=== PATIENT | female | born 1975 | race American Indian/Alaskan Native ===

== ENCOUNTER 2018-07-08 01:17 | Emergency (ER) | payer MEDICAID ==
[2018-07-08 01:22] VITALS: BP 127/86
[2018-07-08] MEDS ORDERED: TORADOL IM ONE (03:21)
--- NOTE | 2018-07-08 03:38 | Emergency Department Report ---
ED Lower Extremity HPI - General Chief Complaint: Extremity Injury, Lower Stated Complaint: KNEE PAIN Time Seen by Provider: 07/08/18 03:18 Source: patient Mode of arrival: Stretcher Limitations: No Limitations - History of Present Illness Initial Comments: Patient is a 43-year-old [place] female states she was kicking a door and felt pop in her left knee now only able to partially bear weight complains of left lateral 5/10 pain subjective swelling patient did ambulate into ED place incident happened 2 hours ago MD Complaint: knee injury Onset/Timin -: hour(s) Injury: Knee: Left Type of Injury: blunt Place: home Severity: moderate Severity scale (0 -10): 4 Improves With: nothing Worsens With: nothing Context: other (kick door ) Associated Symptoms: snap/pop sensation, swelling, able to partially bear weight. denies: numbness, tingling - Related Data Previous Rx's Medication Instructions Recorded Last Taken Type Cyclobenzaprine [Flexeril] 10 mg PO BID PRN #20 tablet 07/08/18 Unknown Rx Menthol/Camphor [[place] 1 applicatio TP QID PRN #1 07/08/18 Unknown Rx Ointment] oint...g. Naproxen 500 mg PO BID PRN #30 tablet 07/08/18 Unknown Rx Allergies Allergy/AdvReac Type Severity Reaction Status Date / Time codeine Allergy Itching Verified 07/25/13 10:16 ED Review of Systems ROS: Stated complaint: KNEE PAIN Other details as noted in HPI Constitutional: denies: chills, fever Eyes: denies: eye pain, eye discharge, vision change ENT: denies: ear pain, throat pain Respiratory: denies: cough, shortness of breath, wheezing Cardiovascular: denies: chest pain, palpitations Endocrine: no symptoms reported Gastrointestinal: denies: abdominal pain, nausea, diarrhea Genitourinary: denies: urgency, dysuria, discharge Musculoskeletal: other (knee pain ) Skin: denies: rash, lesions Neurological: denies: headache, weakness, paresthesias Psychiatric: denies: anxiety, depression Hematological/Lymphatic: denies: easy bleeding, easy bruising ED Past Medical Hx - Past Medical History Additional medical history: chronic back pain - Surgical History Past Surgical History?: No - Social History Smoking Status: Never Smoker Substance Use Type: None - Medications Home Medications: Home Medications Medication Instructions Recorded Confirmed Last Taken Type Cyclobenzaprine [Flexeril] 10 mg PO BID PRN #20 tablet 07/08/18 Unknown Rx Menthol/Camphor [[place] 1 applicatio TP QID PRN #1 07/08/18 Unknown Rx Ointment] oint...g. Naproxen 500 mg PO BID PRN #30 tablet 07/08/18 Unknown Rx ED Physical Exam - General Limitations: No Limitations General appearance: alert, in no apparent distress - Head Head exam: Present: atraumatic, normocephalic - Eye Eye exam: Present: normal appearance, PERRL, EOMI Pupils: Present: normal accommodation - ENT ENT exam: Present: mucous membranes moist - Neck Neck exam: Present: normal inspection - Respiratory Respiratory exam: Present: normal lung sounds bilaterally. Absent: respiratory distress - Cardiovascular Cardiovascular Exam: Present: regular rate, normal rhythm. Absent: systolic murmur, diastolic murmur, rubs, gallop - GI/Abdominal GI/Abdominal exam: Present: soft, normal bowel sounds - Rectal Rectal exam: Present: deferred - Extremities Exam Extremities exam: Present: full ROM, tenderness (left lateral anterior knee ), normal capillary refill. Absent: pedal edema, joint swelling, calf tenderness - Expanded Lower Extremity Exam Left Knee exam: Present: tenderness, pain w/ pronation/supination, pain/laxity with valgus, pain/laxity with varus, full knee extension. Absent: swelling, abrasion, laceration, ecchymosis, deformity, crepidus, dislocation, erythema, effusion, posterior draw sign Lower Leg exam: Present: normal inspection, full ROM Ankle exam: Present: normal inspection, full ROM Foot/Toe exam: Present: normal inspection, full ROM Neuro vascular tendon exam: Present: no vascular compromise. Absent: motor deficit, sensory deficit, tendon deficit Gait: Positive: observed and limited by pain - Back Exam Back exam: Present: normal inspection, full ROM. Absent: tenderness, CVA t enderness (R), CVA tenderness (L), muscle spasm, paraspinal tenderness, rash noted ED Course Vital Signs 07/08/18 07/08/18 01:20 01:35 Temperature 98.9 F 98.9 F Pulse Rate 100 H 101 H Respiratory 18 18 Rate Blood Pressure 127/86 127/86 O2 Sat by Pulse 99 99 Oximetry ED Lower Extremity MDM - Radiology Data xray pending - Medical Decision Making Knee exam no drawer no click no catche no pop patient maintains full extension knee joint is stable there is no efusion no swelling , rom restricted by pain , plan: zelda wrap knee, crutches follow up with orthopedics in 2-3 days, pt verbalized agreement and understanding of discharge plan. Critical care attestation.: If time is entered above; I have spent that time in minutes in the direct care of this critically ill patient, excluding procedure time. ED Disposition Clinical Impression: Knee sprain Qualifiers: Encounter type: initial encounter Involved ligament of knee: lateral collateral ligament Laterality: left Qualified Code(s): S83.422A - Sprain of lateral collateral ligament of left knee, initial encounter Disposition: TO HOME OR SELFCARE Is pt being admited?: No Does the pt Need Aspirin: No Condition: Stable Instructions: Knee Sprain (ED), Crutch Instructions (ED) Prescriptions: Cyclobenzaprine [Flexeril] 10 mg PO BID PRN #20 tablet PRN Reason: Muscle Spasm Menthol/Camphor [[place] Ointment] 1 applicatio TP QID PRN #1 oint...g. PRN Reason: pain Naproxen 500 mg PO BID PRN #30 tablet PRN Reason: pain Referrals: PRIMARY CAREMD [Primary Care Provider] - 3-5 Days KATHY MANN MD [Staff Physician] - 3-5 Days Forms: Work/School Release Form(ED) Time of Disposition: 04:43
--- NOTE | 2018-07-08 06:11 | XRay Report ---
FINAL REPORT EXAM: XR KNEE 3V LT HISTORY: Left Knee Pain COMPARISONS: None. FINDINGS: Three views left knee Anatomic alignment of the left knee without periarticular fracture, gross malalignment or joint effus ion. Joint spaces are preserved. IMPRESSION: No acute left knee finding.
== END 2018-07-08 05:14 | disposition home or self-care (01) ==
LOC: ED 01:17
DX: S83.422A Sprain of lateral collateral ligament of left knee, initial encounter (principal); G89.29 Other chronic pain; Z88.4 Allergy status to anesthetic agent; W22.8XXA Striking against or struck by other objects, initial encounter; Y93.89 Activity, other specified; Y99.8 Other external cause status; Y92.019 Unspecified place in single-family (private) house as the place of occurrence of the external cause
CPT/HCPCS: 73562; 96372; 99284; J1885

== ENCOUNTER 2019-06-12 09:29 | Emergency (ER) | payer SELFPAY ==
[2019-06-12 09:37] VITALS: BP 111/68
--- NOTE | 2019-06-12 10:50 | Emergency Department Report ---
ED Female HPI - General Chief complaint: Urogenital-Female Stated complaint: BREAST PAIN Time Seen by Provider: 06/12/19 10:37 Source: patient Mode of arrival: Ambulatory Limitations: No Limitations - History of Present Illness Initial comments: 44-year-old female presents to the ER today complaining of bilateral breast pain and swelling. Patient states that her symptoms started 2 days before Thanksgiving. She denies any injury to the breast. She denies any erythema, bruising, mass, or nipple discharge. She states that she does not have insura nce and therefore has not been able to follow up with a primary care doctor nor an [facility]. Patient states that her last menstrual cycle was May 30. She states her MC was earlier than normal but otherwise normal. She denies concern for though she is not on any BC. She denies any vag symptoms, UTI symptoms abd pain or any other symptoms at this time. MD Complaint: other (Bilateral breast pain) -: week(s) (2 days before thanksgiving) - Related Data Previous Rx's Medication Instructions Recorded Last Taken Type Cyclobenzaprine [Flexeril] 10 mg PO BID PRN #20 tablet 07/08/18 Unknown Rx Menthol/Camphor [[place] 1 applicatio TP QID PRN #1 07/08/18 Unknown Rx Ointment] oint...g. Naproxen 500 mg PO BID PRN #30 tablet 07/08/18 Unknown Rx Naproxen [Naprosyn] 500 mg PO BID PRN #30 tablet 06/12/19 Unknown Rx Allergies Allergy/AdvReac Type Severity Reaction Status Date / Time codeine Allergy Itching Verified 07/25/13 10:16 ED Review of Systems ROS: Stated complaint: BREAST PAIN Other details as noted in HPI Comment: All other systems reviewed and negative Constitutional: denies: chills, fever Cardiovascular: denies: chest pain Gastrointestinal: denies: abdominal pain, nausea, vomiting, diarrhea Genitourinary: denies: urgency, dysuria, frequency, discharge Musculoskeletal: denies: back pain Neurological: denies: headache Other: + bilateral breast pain and swelling ED Past Medical Hx - Past Medical History Previous Medical History?: No Additional medical history: chronic back pain - Surgical History Past Surgical History?: No - Social History Smoking Status: Never Smoker Substance Use Type: None - Medications Home Medications: Home Medications Medication Instructions Recorded Confirmed Last Taken Type Cyclobenzaprine [Flexeril] 10 mg PO BID PRN #20 tablet 07/08/18 Unknown Rx Menthol/Camphor [[place] 1 applicatio TP QID PRN #1 07/08/18 Unknown Rx Ointment] oint...g. Naproxen 500 mg PO BID PRN #30 tablet 07/08/18 Unknown Rx Naproxen [Naprosyn] 500 mg PO BID PRN #30 tablet 06/12/19 Unknown Rx ED Physical Exam - General Limitations: No Limitations General appearance: alert, in no apparent distress - Head Head exam: Present: atraumatic, normocephalic - Eye Eye exam: Present: normal appearance, PERRL, EOMI - ENT ENT exam: Present: normal exam, mucous membranes dry - Respiratory Respiratory exam: Absent: respiratory distress - Cardiovascular Cardiovascular Exam: Present: regular rate - GI/Abdominal GI/Abdominal exam: Present: soft. Absent: tenderness - Neurological Exam Neurological exam: Present: alert, oriented X3, CN II-XII intact - Other Other exam information: Diffuse tenderness to both breast. No apparent swelling, mass, bruising or erythema noted. No nipple d/c or dimpling noted. ED Course Vital Signs 06/12/19 06/12/19 06/12/19 09:34 10:59 12:14 Temperature 98.9 F Pulse Rate 84 Respiratory 19 18 Rate Blood Pressure 111/68 Blood Pressure 111/68 [Right] O2 Sat by Pulse 98 Oximetry Critical care attestation.: If time is entered above; I have spent that time in minutes in the direct care of this critically ill patient, excluding procedure time. ED Disposition Clinical Impression: Breast pain in female Disposition: - TO HOME OR SELFCARE Is pt being admited?: No Does the pt Need Aspirin: No Condition: Stable Instructions: Breast Self-exam (ED) Additional Instructions: Recommend that you follow up with OBGYN, and or PCP for outpatient Mammogram for further evaluation of your breast pain. Prescriptions: Naproxen [Naprosyn] 500 mg PO BID PRN #30 tablet PRN Reason: Pain , Severe (7-10) Referrals: SVETLANA DAVID MD [Staff Physician] - 3-5 Days [facility] [Provider Group] - 3-5 Days Time of Disposition: 12:05
[2019-06-12] MEDS ORDERED: IBUPROFEN 600 MG TAB PO ONE (10:51)
[2019-06-12 11:41] LABS: HCG Qualitative,Urine Negative (Negative)
[2019-06-12 11:42] LABS: Bilirubin,Urine NEG (Negative); Blood,Urine SM (Negative); Color,Urine Yellow (Yellow); Mucus,Urine FEW /HPF; Protein,Urine <15 mg/dL mg/dL (Negative); Urobilinogen,Urine < 2.0 mg/dL (<2.0)
== END 2019-06-12 12:14 | disposition home or self-care (01) ==
LOC: ED 09:29
DX: N64.4 Mastodynia (principal); G89.29 Other chronic pain; M54.9 Dorsalgia, unspecified; Z88.5 Allergy status to narcotic agent
CPT/HCPCS: 81001; 81025